=== PATIENT | female | born 1955 | race Caucasian/White ===

== ENCOUNTER 2022-03-19 11:37 | Day surgery (SDC) | payer MEDICARE, OTHER ==
[~2022-03-19] VITALS: Ht 177.8 cm; Wt 78.2 kg
[~2022-03-19 11:37] MED LIST: AMBIEN10 MG PO; DULOXETINE HCL40 MG PO; EPINEPHRIN0.3 MG/0.3 IM; IRON18 MG PO; MULTI VITAMIN1 EACH PO; VENTOLIN HFA18 GM INH
--- NOTE | 2022-03-19 14:28 | NUR ---
03/19/22 1428 Soraida Snow 1353 PT ARRIVED IN PACU SLEEPY. ABD SOFT. 1405 DR AT BEDSIDE. NEW ORDERS RECEIVED. 1410 STAT LABS DRAWN. 1425 RESTING. REU.
--- NOTE | 2022-03-19 15:00 | NUR ---
1500-PATIENT BACK TO ROOM 9 WHILE SHE WAITS TO HAVE A CT SCAN. PATIENT IS DROWSY LAYING IN BED WITH EYES CLOSED. DISCHARGE INSTRUCTIONS GIVEN WHILE IN PACU. 1605-PATIENT LEAVES DAY SURGERY TO HAVE CT. AFTER CT PATIENT WILL BE DISCHARGED.
--- NOTE | 2022-03-20 19:03 | OR ---
[facility] [address] [place], [place] [address] Signed DATE OF OPERATION: 03/19/2022 SURGEON: Matt Harmon MD PREOPERATIVE DIAGNOSES: 1. Anemia, unknown etiology. 2. Family history of colon cancer (sister). POSTOPERATIVE DIAGNOSES: 1. Large hiatal hernia. 2. Colon cancer, cecal tumor. PROCEDURES: 1. Esophagogastroduodenoscopy with biopsy. 2. Total colonoscopy to cecum with Endomark tattoo dye injection. 3. Biopsy of cecal tumor. ANESTHESIA: Intravenous sedation fentanyl 200 mcg and Versed 10 mg total. INDICATION: This 66-year-old white woman is a patient of Dr. Camejo of [place], [place]. She was referred to see me on January 16, as she was found to have anemia. Her hematocrit was 29 on December 05, 2021, She does have family history of colon cancer in a sister. She has undergone three colonoscopies in the past, last one in 2018, which was said to have showed "some polyps." She is symptom-free. She is admitted to undergo upper endoscopy and colonoscopy to better identify the source of anemia. She understands the risks of bleeding, infection, and perforation related to upper endoscopy and colonoscopy and wished to proceed. FINDINGS: Upper endoscopy showed only a hiatal hernia. There was no sign of associated lesion to account for anemia. On colonoscopy, the prep was good and a cecal tumor consistent with colon cancer was noted. It was firm and yet friable and multiple biopsies were obtained. Endomark tattoo dye was applied to guide resection in the near future. PROCEDURE IN DETAIL: The patient was brought to the endoscopy suite and placed in lateral decubitus position Electronically Signed By: MATT HARMON MD 03/20/22 1903 PATIENT NAME: SHUBHAM URENA OPERATIVE REPORT DATE OF : 57 REPORT #: [id number] PHYSICIAN: MATT HARMON MD PCP: JR CAMEJO DO REPORT IS CONFIDENTIAL AND NOT TO BE RELEASED WITHOUT AUTHORIZATION [facility] [address] [place], [place] [address] Signed after undergoing lidocaine hypopharyngeal anesthesia. A bite block was placed. She was given intravenous sedation to the point of slurred speech and nystagmus with full cardiopulmonary monitoring. An Olympus video upper endoscope was passed in the hypopharynx. The vocal cords appeared normal. Scope was advanced to the esophagus without problem throughout its length, it was normal. Scope was passed to the stomach, which was insufflated with air. Rugal folds were normal. Pylorus was normal. Scope was passed through into the normal duodenum. Biopsies taken of the duodenum and subsequently the antrum for both WILLIAM and pathologic testing. Retroflexed view showed a sizable hiatal hernia. There was no sign of collar ulcer. The scope was straightened, withdrawn and biopsies then taken of the distal esophagus, though it appeared otherwise normal. Remaining esophagus was normal. There was no evidence of lesion on upper endoscopy to account for anemia. Additional sedation was given and digital rectal examination performed which was normal. An Olympus video colonoscope was passed in the rectum and manipulated throughout the colon ultimately intubating the right colon and passage to the cecum undertaken. The lumen of the cecum was a bulky tumor, most consistent with malignancy. Four-quadrant injection of submucosal spot endoscopic tattoo dye was injected with sclerotherapy needle to demarcate the lesion for probable laparoscopic right colectomy. Following that, multiple biopsies were taken of the lesion. It felt firm and [place] consistent with malignancy. The scope was then withdrawn. Remaining colon was essentially normal. She was taken to the recovery room in good condition. 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 PLAN: She will need right colectomy probably laparoscopically. We will order a CEA, Chem 20 and CBC at this time, as well as organized for a CT scan of the abdomen and pelvis to allow for right colectomy in the near future. MD LEAH Escobedo/MODL /[id number] Electronically Signed By: MATT HARMON MD 03/20/22 1903 PATIENT NAME: SHUBHAM URENA OPERATIVE REPORT DATE OF : 57 REPORT #: [id number] PHYSICIAN: MATT HARMON MD PCP: JR CAMEJO DO REPORT IS CONFIDENTIAL AND NOT TO BE RELEASED WITHOUT AUTHORIZATION [facility] [address] [facility] [place] [address] Signed cc: Dr. Trey Pierre Copies: ~ Electronically Signed By: MATT HARMON MD 03/20/22 1903 PATIENT NAME: SHUBHAM URENA OPERATIVE REPORT DATE OF : 57 REPORT #: [id number] PHYSICIAN: MATT HARMON MD PCP: JR CAMEJO DO REPORT IS CONFIDENTIAL AND NOT TO BE RELEASED WITHOUT AUTHORIZATION
--- NOTE | 2022-03-26 08:56 | PATH ---
[facility] [address] [place], [place] [address] Signed THIS IS AN ADDENDUM REPORT SPECIMEN(S): A DUODENAL BIOPSY SPECIMEN(S): B ANTRUM/PYLORUS BIOPSY SPECIMEN(S): C LOWER ESOPHAGEAL BIOPSY SPECIMEN(S): D CECAL TUMOR BIOPSY SPECIMEN SOURCE: A. DUODENAL BIOPSY B. ANTRUM/PYLORUS BIOPSY C. LOWER ESOPHAGEAL BIOPSY D. CECAL TUMOR BIOPSY CLINICAL HISTORY: Anemia, family and personal history of polyps. Sister with colon ca. Post: Hiatal hernia. Neoplasm of cecum. Colonoscopy/EGD. FINAL PATHOLOGIC DIAGNOSIS: A. Duodenum, biopsy: - No significant histopathology. B. Antrum/pylorus, biopsy: - No significant histopathologic alterations. - A portion of pylorus/duodenum is also identified and is within normal limits. C. Lower esophagus, biopsy: - Portions of unremarkable squamous mucosa. D. Tumor, cecum, biopsy: - Moderately to poorly differentiated adenocarcinoma. COMMENT: Regarding specimen A, the sections from the duodenal biopsy show portions of duodenal mucosa with long finger-like villi. There is no villous atrophy, crypt hyperplasia or intraepithelial lymphocytosis, making a diagnosis of celiac disease unlikely. There is no evidence of peptic duodenitis, microorganisms, abnormal infiltrates or neoplasia. The sections through the gastric biopsies show fragments of histologically unremarkable antral mucosa. There is no evidence of acute or chronic inflammation. There is no evidence of H. pylori, intestinal metaplasia, abnormal infiltrates or neoplasia. PATIENT NAME: HAGSHUBHAM RICKETTS PATHOLOGY DATE OF : 57 REPORT #: [id number] PHYSICIAN: AUNG GUEVARA PCP: JR DAN DO REPORT IS CONFIDENTIAL AND NOT TO BE RELEASED WITHOUT AUTHORIZATION [facility] [address] [place], [place] [address] Signed Regarding specimen C, the esophageal biopsy shows normal-appearing squamous epithelium. There is no evidence of acute or chronic inflammation. Regarding specimen D, due to the tangential sectioning of the specimen, the definitive presence of invasion cannot be ascertained. Results of microsatellite instability testing will follow in an addendum report. A diagnostic alert was sent to the office of Dr. Wasserman on 03/22/2022. As part of [facility]' Quality Improvement Program, this case was reviewed by another member of our pathology staff. ALVARADO:ELOY:alisa:C1NR MICROSCOPIC EXAMINATION: Histologic sections of all submitted blocks are examined by light microscopy. These findings, together with the gross examination, support the pathologic diagnosis. GROSS DESCRIPTION: Four specimens are received in four containers labeled with "MH". A. The specimen, labeled "MH, 1," and designated on the requisition "duodenum biopsy," is received in formalin and consists of two fragments of pink-bell tissue (0.3-0.5 cm in greatest dimension). The specimen is submitted entirely in cassette (A1). B. The specimen, labeled "MH, 2," and designated on the requisition "antrum/pylorus biopsy," is received in formalin and consists of three fragments of pink-bell tissue (0.2-0.3 cm in greatest dimension). The specimen is submitted entirely in cassette (B1). C. The specimen, labeled "MH, 3," and designated on the requisition "lower esophagus biopsy," is received in formalin and consists of two fragments of white-bell tissue (0.3-0.4 cm in greatest dimension). The specimen is submitted entirely in cassette (C1). D. The specimen, labeled "MH, 4," and designated on the requisition "cecum tumor biopsy," is received in formalin and consists of eight fragments of pink-bell tissue (0.2-0.4 cm in greatest dimension). The specimen is submitted entirely in cassette (D1). AC (under the direct supervision of a pathologist) The Gross Description was prepared using a voice recognition system. The report was reviewed for accuracy; however, sound-alike word errors, addition and/or deletions may occur. If there is any question about this report, please contact Client Services. PATIENT NAME: SHUBHAM URENA PATHOLOGY DATE OF : 57 REPORT #: [id number] PHYSICIAN: AUNG GUEVARA PCP: JR DAN DO REPORT IS CONFIDENTIAL AND NOT TO BE RELEASED WITHOUT AUTHORIZATION [facility] [address] [place], [place] [address] Signed PERFORMING LABORATORY: The technical component was performed by [facility], [address] [place] [id number] (CLIA# [id number]). The professional interpretation was performed by [facility], [facility], [address] [place] [address] (CLIA#: [id number]). COMMENT: Tumor cells show no loss of nuclear expression of MMR proteins. This correlates with a low probability of microsatellite instability. However, if there is a high clinical suspicion for Burnett syndrome (hereditary non-polyposis colorectal carcinoma syndrome) in this patient, additional testing should be considered. Please contact [facility] if such testing is indicated. BETITOK:rosina ADDITIONAL NOTES: Immunohistochemical and/or in situ hybridization studies were performed on this case with the appropriate positive controls that react as expected. This test was developed and its performance characteristics determined by [facility]. It has not been cleared or approved by the U.S. Food and Drug Administration. The FDA has determined that such clearance or approval is not necessary. This test is used for clinical purposes. It should not be regarded as investigational or for research. [facility] is certified under the Clinical Laboratory Improvement Amendments of 1988 (CLIA) as qualified to perform high complexity clinical laboratory testing. The professional interpretation was performed by [facility], [facility], [address] [place] [place] [address] (CLIA#: [id number]). REASON FOR ADDENDUM: To add results of additional testing. ADDENDUM PATHOLOGIC DIAGNOSIS: Cecum, adenocarcinoma, microsatellite instability testing by IHC: - MLH1: Intact nuclear expression. - MSH2: Intact nuclear expression. - MSH6: Intact nuclear expression. - PMS2: Intact nuclear expression. INTERPRETATION: Normal pattern. PATIENT NAME: SHUBHAM URENA PATHOLOGY DATE OF : 57 REPORT #: [id number] PHYSICIAN: AUNG GUEVARA PCP: JR DAN DO REPORT IS CONFIDENTIAL AND NOT TO BE RELEASED WITHOUT AUTHORIZATION [address] [address] Signed ADDENDUM MICROSCOPIC EXAMINATION: A panel of four antibodies is selected which will detect 95% of microsatellite unstable carcinomas. Block: D1 Recut HE slide is prepared from the block. The presence of neoplastic glands and non-neoplastic internal control glands or stroma is confirmed. Internal control cells for MLH1, MSH2, PMS2 and MSH6 are positive. Neoplastic gland cells show the following: - MLH1: Positive. - MSH2: Positive. - MSH6: Positive. - PMS2: Positive. Technical testing [place] performed [place] [facility] [place]. TWK:caw Diagnostician: Jero Carrera MD Pathologist Electronically Signed 03/26/2022 Copies: ~ PATIENT NAME: SHUBHAM URENA PATHOLOGY DATE OF : 57 REPORT #: [id number] PHYSICIAN: AUNG PATHOLOGY PCP: JR DAN DO REPORT IS CONFIDENTIAL AND NOT TO BE RELEASED WITHOUT AUTHORIZATION
== END 2022-03-19 16:30 | disposition home or self-care (01) ==
LOC: OPS 11:37 → DS 11:37 → OPS 13:00 → DS 13:00 → OPS 16:30
PROVIDERS: ATTEND Surgery
PROC: 0DB38ZX Excision of Lower Esophagus, Via Natural or Artificial Opening Endoscopic, Diagnostic (ICD-10-PCS; 2022-03-19)
PROC: 0DBH8ZX Excision of Cecum, Via Natural or Artificial Opening Endoscopic, Diagnostic (ICD-10-PCS; 2022-03-19)
PROC: 0DB98ZX Excision of Duodenum, Via Natural or Artificial Opening Endoscopic, Diagnostic (ICD-10-PCS; principal; 2022-03-19 13:00)
PROC: 0DB68ZX Excision of Stomach, Via Natural or Artificial Opening Endoscopic, Diagnostic (ICD-10-PCS; 2022-03-19 13:00)
DX: C18.0 Malignant neoplasm of cecum (principal); D63.0 Anemia in neoplastic disease; Z80.0 Family history of malignant neoplasm of digestive organs; K44.9 Diaphragmatic hernia without obstruction or gangrene; Z91.040 Latex allergy status
CPT/HCPCS: 36415; 74177; 80053; 82378; 85025; 88305; 88341; 88342; 99153; G0500; J2250; J3010; J7121; Q9967

== ENCOUNTER 2022-03-27 16:16 | Inpatient (IN) | payer MEDICARE, OTHER ==
[~2022-03-27] VITALS: Ht 177.8 cm; Wt 86.4 kg
--- NOTE | 2022-04-06 20:20 | NUR ---
CALL RECEIVED FROM OR, OR TEAM IS "WRAPPING UP" AND pt WILL BE GOING TO PACU SOON. IN ROOM AND UPDATED.
--- NOTE | 2022-04-06 20:27 | NUR ---
04/06/222026 Jocelin Cerda 2019-PATIENT ARRIVED TO PACU ON 6L MASK NONAROUSABLE ORAL AIRWAY IN PLACE. 96% DRESSING TO ABDOMEN CDI. IVF INFUSING. SR. RN DOING JAW TILT TO OPEN AIRWAY. 2025-PATIENT STARTING TO MOVE HEAD NOT FOLLOWING COMMANDS EYES CLOSED. ORAL AIRWAY IN PLACE. MATT MARTINEZ ADMISTERING IV TYLENOL. 6L MASK 98%
--- NOTE | 2022-04-06 20:55 | NUR ---
CALL RECEIVED FROM OR, pt HEADING TO PACU SOON. IN ROOM AND UPDATED. QUESTIONS ANSWERED, pt ORIENTED TO ROOM AND CALL LIGHT IN REACH.
--- NOTE | 2022-04-06 21:30 | NUR ---
PT ARRIVED TO UNIT VIA HOSPITAL BED FROM OR. RECEIVED REPORT FROM WHITLEY FROM PACU. PT IS DROWSY BUT AWAKENS TO VOICE AND ABLE TO FOLLOW COMMANDS. HAMMER CATHETER PLACED IN OR IS DRAINING TO GRAVITY W/YELLOW OUTPUT AND SUFFICIENT QUANTITY. PILLOW PLACED ON ABDOMEN FOR BRACING W/MOVEMENT, PT EDUCATED ABOUT USE. MIDLINE INCISION DRESSING AND LAP SITE APPEARS C/D/I W/NO SIGNS OF INFECTION. SYSTOLIC BP ELEVATED AT 161 SYSTOLIC. PT ORIENTED X4. ADMISSION ASSESSMENT COMPLETE. CPOX IN PLACE PER PROTOCAL. SWALLOW ABILITY EVALUATED BY BRITANY RN W/SPOON FULL OF WATER, SWALLOWING IS SLOWED, WILL MONITOR AND REASSESS. BED ALARM ON, CALL LIGHT WITHIN REACH, NO FURTHER NEEDS AT THIS TIME.
--- NOTE | 2022-04-06 22:59 | NUR ---
2128 - pt admitted to room 108 from pacu via bed. pt drowsy, in room
--- NOTE | 2022-04-06 23:41 | NUR ---
IN PT ROOM FOR REPORTED 10/10 PAIN IN ABDOMEN, VERBALLY STATED BY PT. PRN TORADOL ADMINISTERED VIA IV (SEE EMAR). PT RESTING IN BED WITH EYES CLOSED, AWAKENS TO VOICE. AT BEDSIDE. BED ALARM ON, CALL LIGHT WITHIN REACH, HAMMER DRAINING TO GRAVITY.
--- NOTE | 2022-04-06 23:48 | NUR ---
pt opens eyes, more alert, on 2lnc, not chronic, post op cpox in place, sats 98% pulse 70, resp 14, shallows, answers appropriately, c/o 10/10 abd pain, was medicated with toradol 30mg. pale skin, midline abd incision in place, F/C not chronic patent, draining yellow urine, SCDS in place, at bedside
--- NOTE | 2022-04-07 00:34 | NUR ---
IN PT ROOM FOR VITALS, PT IS RESTING IN BED WITH EYES CLOSED BUT AWAKENS TO VOICE. RESPIRATIONS ARE EVEN AND UNLABORED, NO SIGNS OF DISTRESS. PT STATES PAIN HAS NOT DECREASED AFTER PRN TORADOL ADMIN. LIGHTS TURNED OFF AND TV TURNED OFF FOR THERAPEUTIC MILIEU, GONE HOME FOR THE NIGHT. CALL LIGHT WITHIN REACH, BED ALARM ON, NO FURTHER NEEDS AT THIS TIME.
--- NOTE | 2022-04-07 01:01 | NUR ---
AWAKES EASILY, C/O 10/10 ABD PAIN, MEDICATED WITH MORPHINE 2MG, PUPILS REACTIVE, ALERT, TOLERATED SIPD OF FLUIDS MUCH BETTER, NO DELAY. FACIAL SKIN W MORE COLOR. MIDLINE ABD INCISION AND 2 SMALL LAP DRESSINGS l ABD INTACT. ABD SOFT, LESLIE, NOT PASSING GAS. WILL RECHECK VITALS AND RESP AGAIN IN 1/2 HOUR AND NOTIFY MD IF STILL ELEVATED AND PT HAVING PROBLEMS, POST OP CPOX IN PLACE SATS 98%
--- NOTE | 2022-04-07 01:49 | NUR ---
MESSAGE LEFT IN DR VALDEZ CELL PHONE #
--- NOTE | 2022-04-07 01:56 | NUR ---
DR HARMON NOTIFIED VIA PHONE ABOUT PTS STATUS AND BP'S SINCE COMING TO FLOOR. NEW ORDER TO START HYDRALIZINE 10MG IV Q2H IF SBP HIGHER THAN 160.
--- NOTE | 2022-04-07 02:08 | NUR ---
HYDRALAZINE IV GIVEN PER ORDERS. PT AWAKE, FORGETFULL, TRYING TO GRAB UNSEEN THINGS FROM AIR. ALERT TO SELF ONLY, C/O ABD PAIN 5/10, BETTER THAN EARLIER. INSTRUCTED ON VISTAERIL BEING GIVENA ND REASONING, DENIES FLUSHING LIGHT OR VISUAL IMPAIRMENTS OR H/A, IVF INFUSING W/O PROBLEMS, F/C PATENT ICE TO ABD, HOB ELEVATED, CLEAR SPEECH, EYES OPEN, CPOX AT BEDSIDE SATS 100%, PULSE 68, RESP 15
--- NOTE | 2022-04-07 02:48 | NUR ---
IN ROOM TO ASSESS PT D/T REPORTS OF NAUSEA. PT IS NOW RESTING W/HOB ELEVATED AND EMESIS BAG IN LAP. EYES ARE CLOSED, RESPIRATIONS ARE EVEN & UNLABORED, NO SIGNS OF DISTRESS. CPOX READS 98% O2 ON 2L NC.
--- NOTE | 2022-04-07 03:52 | NUR ---
PT RESTING COMFORTABLY IN BED W/EYES CLOSED. RESPIRATIONS ARE EVEN AND UNLABORED, NO SIGNS OF DISTRESS. CPOX READS 98% O2 ON 2L NC, AND PULSE OF 77. CALL LIGHT WITHIN REACH, BED ALARM ON.
--- NOTE | 2022-04-07 05:20 | NUR ---
EYES CLOSED, O2 2L NC POST OP CPOX AT BEDSIDE SATS 100% P62 RESP 16.AWAKES EASILY, C/O 10/10 ABD PAIN, MEDICATED WITH TYLENOL IV. O2 DECREASED TO 1LNC, CPOX ON 97% P78 WHEN AWAKE, LUNGS CLEAR, ABD SOFT MIDLINE ABD DRESSING IN PLACE. LESLIE, KASSANDRA PASSING GAS OR BURPING. MORE ALERT, CALMER, F/C PATENT, SCDS IN PLACE. WNL, TOLERATED SIPS OF FLUIDS WELL. CALL LIGHT AT HANDSA REACH, IVF INFUSING W/O PROBLEMS
--- NOTE | 2022-04-07 05:29 | NUR ---
IN PT ROOM WITH BRITANY RN FOR VS AND I/O'S. PT IS RESTING COMFORTABLY ALERT AND ORIENTED X4. VSS. BP SYSTOLIC HAS IMPROVED TP 130'S SYSTOLIC. DRESSING REMAINS C/D/I WITH NO SIGNS OF INFECTION. PT EDUCATED ABOUT PLAN FOR THE DAY, STATES UNDERSTANDING AND AGREES. PT COLOR APPEARS PINK AND MUCH IMPROVED. CALL LIGHT WITHIN REACH, NO FURTHER NEEDS AT THIS TIME.
--- NOTE | 2022-04-07 06:24 | NUR ---
PT ARRIVED TO FLOOR AT 2127. ABDOMINAL DRESSING IS C/D/I WITH NO SIGNS OF INFECTION (2 LAPS, 1 MIDLINE INCISION). PT BP ELEVATED->MD AWARE, NEW ORDERS PLACED (SEE EMAR). BLOOD PRESSURES HAVE SINCE IMPROVED TO 130 SYSTOLIC. PRN MORPHINE, TYLENOL, AND TORADOL GIVEN X1 EACH. HAMMER IN PLACE AND DRAINING TO GRAVITY, QUANTITY SUFFICIENT. PT DROWSY, BUT ORIENTED X4. BOWEL TONES ARE ACTIVE. USES CALL LIGHT APPROPRIATELY. BED ALARM ON. AM LABS PENDING.
--- NOTE | 2022-04-07 07:55 | NUR ---
PT RESTING EYES CLOSED AT TIME OF SHIFT REPORT. UP TO THE CHAIR AT THIS TIME, WELL TOLERATED. PT RATES PAIN 10/10 BEFORE MOVEMENT. TORDOL ADMINISTERED. PT INSTRUCTED ON BRACING ABDOMEN AND ENCOURAGED TO COUGH AND DEEP BREATH. PT NOW USING I/S WITH INSTRUCTION. FRESH H20 TO CHAIR SIDE ALONG WITH CALL LIGHT AND INSTRUCTIONS TO CALL FOR ASSIST.
--- NOTE | 2022-04-07 10:26 | NUR ---
PT RESTING IN BED AFTER HAVING TAKEN A WALK. IS PRESENT. PT AGREES DR HARMON WAS IN TO SEE HER AND ANSWERED ALL QUESTIONS. HAMMER DC'D AND DIET ADVANCED TO FULL LIQUID. PT UP TO THE TOILET THEN RETURNS TO RESTING IN BED. CONTINUES TO BE SOMEWHAT PAINFUL, TYLENOL ADMINISTERED.
--- NOTE | 2022-04-07 11:11 | NUR ---
THIS MORNING PATIENT AND I WALKED 1 LAP AROUND MED SURG.
--- NOTE | 2022-04-07 12:00 | NUR ---
PT UP TO THE TOILET ABLE TO VOID WITHOUT ISSUE. AMBULATES A LAP IN THE VILLAGRAN RETURNS TO SIT IN THE RECLINER. USING I/S WITH ENCOURAGEMENT
--- NOTE | 2022-04-07 15:11 | NUR ---
ENTERED THE ROOM IN TIME TO SEE PT JUST GETTING BACK IN BED. SHE STATES SHE UNPLUUGED SCD'S FROM THE MACHINE AND IV THEN WENT INTO THE RESTROOM UNATTENDED BECAUSE SHE STATES SHE WAS ALREADY STARTING TO PEE AND COULDN'T WAIT. ENCOURAGED PT TO CALL FOR ASSIST AND REMINDED HER OF NO LIFTING, PUSHING, OR PULLING. ASSISTED PT TO PUT ON A PADDED UNDERGARMENT, BED ALARM SET. SHE DOES NOT C/O OF NAUSEA OR PAIN AT THIS TIME, WILL CONTINUE PAIN MEDS AT REGULAR INTERVALS TO ENSURE COMFORT.
--- NOTE | 2022-04-07 16:08 | NUR ---
PT PRESENT IN THE ROOM, SHE CALLS APPROPRIATELY TO GET UP TO TOILET. AGREES HER ABDOMEN IS STARTING TO HURT, RATES PAIN 8/10 TORDOL GIVEN. AGREES TO REST FOR A SHORT TIME THEN GET TO AMBULATE THE HALLS AGAIN. PT ENCOURAGED TO USE THE I/S
--- NOTE | 2022-04-07 17:30 | NUR ---
PT UP TO TOILET, USES CALL LIGHT APPROPRIATELY. SHE MAKES 2 LAPS IN THE VILLAGRAN THEN RETURNS TO HER ROOM. PREFERS BED INSTEAD OF CHAIR. EVENING MEAL SERVED PT TOLERATING BITES, DENIES WANT OF OTHER ITEMS. SCD'S ARE IN PLACE, CALL LIGHT IN HAND
--- NOTE | 2022-04-07 19:10 | NUR ---
RECEIVED REPORT FROM EMILIANO BAHENA. PT IS RESTING IN BED W/DAUGHTER AND AT BEDSIDE. EMILIANO BAHENA ASSISTING PT WITH AMBULATION TO BATHROOM.
--- NOTE | 2022-04-07 20:30 | NUR ---
IN ROOM FOR PT ASSESSMENT AND WAREHOUSE INVENTORY CLERK. PT REPORTS PAIN 9/10. PRN TYLENOL AND TORADOL NOT AVAILABLE, MORPHINE GIVEN (SEE EMAR). DRESSINGS APPEARS C/D/I WITH SCANT SEROSANGUINOUS DRAINAGE, NO SIGNS OF INFECTION. BOWEL TONES ARE ACTIVE X4 AND ABDOMEN IS MINIMALLY DISTENDED COMPARED TO NORMAL PER PT, WELL TENDER. PT O2 98% AND PT OCCASIONALLY PAIN W/DEEP BREATHING. PT EDUCATED ON IS USE AND DEMONSTRATED PROPER USE X2. SCD'S IN PLACE. PT REPORTS NO DIZZINESS, N/T, CHEST PAIN. PT ALERT AND ORIENTED X4, FOLLOWS COMMANDS. PT WEAK BUT ABLE TO ADJUST SELF IN BED. PILLOW PROVIDED FOR STOMACH BRACING FOR INFREQUENT OCCASIONAL COUGH, LUNGS ARE CLEAR. BED ALARM ON, CALL LIGHT WITHIN REACH, NO FURTHER NEEDS AT THIS TIME.
--- NOTE | 2022-04-07 20:31 | NUR ---
VITALS SIGNS COMPLETE, FRESH ICE WATER GIVEN, GARBAGE REMOVED, PRIMARY RN IN ROOM, PT COMPLAINED OF 9/10 PAIN. THIS RN AND PRIMARY LETTY, REPOSITIONED PT UP INTO BED.
--- NOTE | 2022-04-07 21:00 | NUR ---
IN PT ROOM, PT STATES SHE IS NAUSEATED. PRN ZOFRAN GIVEN (SEE EMAR). IN MIDDLE OF ADMINISTRATION PT HAD SMALL AMOUNT OF EMESIS, HOB ELEVATED, COLD RAG PROVIDED, ALKA VINNY PROVIDED. CALL LIGHT WITHIN REACH, BED ALARM ON, WILL CONTINUE TO MONITOR.
--- NOTE | 2022-04-07 21:15 | NUR ---
IN ROOM TO ASSESS PT AFTER NAUSEATED, PT STATES NAUSEA HAS IMPROVED. LIGHTS REDUCED FOR THERAPEUTIC MILIEU. CALL LIGHT WITHIN REACH, BED ALARM ON, NO FURTHER NEEDS AT THIS TIME.
--- NOTE | 2022-04-07 22:35 | NUR ---
CALL LIGHT ANSWERED, pt ASKING FOR OXYGEN D/T INABILITY TO TAKE DEEP BREATHS. IN ROOM TO ASSESS, pt AWAKE AND RESTING IN BED, NEARLY FLAT. SPO2 100 ON RA, NO DISTRESS NOTED. pt RECENTLY HAD COUGHING SPELL/EMESIS AND WAS MEDICATED BY PRIMARY RN. HOB RAISED AND pt EDUCATED ON ABD SPLINTING WITH PILLOW. NO ADDITIONAL NEEDS OR CONCENRS VERBALIZED, WILL MONITOR. CALL LIGHT IN REACH.
--- NOTE | 2022-04-07 23:00 | NUR ---
REASSESSED pt, pt RESTING IN BED AND CALM IN APPEARANCE. NO DISTRESS NOTED. NO NEEDS OR CONCERNS, CALL LIGHT IN REACH. pt REMAINS ON RA.
--- NOTE | 2022-04-08 00:10 | NUR ---
IN ROOM FOR PRN PAIN ENERGY ADMINISTRATOR FOR 8/10 ABDOMEN PAIN. PT STATES NO NAUSEA AT THIS TIME. PRN TORADOL AND TYLENOL GIVEN (SEE EMAR). ICE PACK PROVIDED. CALL LIGHT WITHIN REACH, BED ALARM ON, NO FURTHER NEEDS AT THIS TIME.
--- NOTE | 2022-04-08 01:15 | NUR ---
PT ASSISTED TO THE TOILET, BACK TO BED
--- NOTE | 2022-04-08 03:18 | NUR ---
IN ROOM TO ASSIST W/PT AMBULATION TO BATHROOM. THIS RN AND TROY BEAULIEU IN ROOM. PT GAIT TO BATHROOM IS STEADY. PT NOW BACK IN BED. PT REPORTS 7/10 PAIN AFTER AMBULATION, ICE PACK PROVIDED. PT IS NOW RESTING IN BED WITH EYES CLOSED. NO ACUTE CHANGES FROM PREVIOUS ASSESSMENT. BOWEL TONES ACTIVE X4, DRESSING IS C/D/I W/SCANT DRAINAGE FROM OLD SHADOWING. NO NEW SHADOWING. ABDOMEN IS TENDER AND MINIMALLY DISTENDED PER PT. SCD'S IN PLACE. CALL LIGHT IN REACH, BED ALARM ON.
--- NOTE | 2022-04-08 05:19 | NUR ---
ASSISTED PT W/AMBULATION TO BATHROOM VIA STANDBY ASSIST. PT SLOW BUT STEADY IN GAIT, VOIDED 580. PT NOW BACK IN BED WITH FRESH ICE PACK ON ABDOMEN. SCD'S IN PLACE. PT STATES PAIN IN ABDOMEN 01/17. PT STATES SHE IS HESITANT TO TAKE MORPHINE D/T N/V. LET HER KNOW PRN TYLENOL AND IBUPROFEN NOT AVAILABLE AT THIS TIME. WILL LET PT REST AND REASSESS IF SHE WOULD LIKE THE MORPHINE. CALL LIGHT WITHIN REACH, BED ALARM ON, COLD WASH CLOTH PROVIDED.
--- NOTE | 2022-04-08 06:49 | NUR ---
IN PT ROOM FOR ABX ADMINISTRATION. ASSISTED PT W/AMBULATION VIA STANDBY ASSIST TO RESTROOM. PT AMBULATED WELL, SLOW BUT STEADY GAIT. PT NOW RESTING IN BED WITH ICE PACK AND COLD WASH CLOTH ON FOREHEAD. PT STATES REQUESTS PRN NAUSEA MEDICATION AND PRN TYLENOL. 300 OUTPUT VOIDED. PT BOOSTED IN BED. BED ALARM ON, CALL LIGHT WITHIN REACH, NO FURTHER NEEDS AT THIS TIME.
--- NOTE | 2022-04-08 07:28 | NUR ---
PT SLEEPING SOUNDLY AT TIME OF SHIFT REPORT, LEFT UNDISTURBED. BED ALARM IS CERTIFIED NURSING ATTENDANT LIGHT IN REACH
--- NOTE | 2022-04-08 07:44 | NUR ---
PT ASLEEP IN BED. WHITE BOARD UPDATED. CALL LIGHT IN REACH. WILL CHECK BACK LATER. NO FURTHER NEEDS AT THIS TIME.
--- NOTE | 2022-04-08 09:07 | NUR ---
PT UP IN THE CHAIR EATS BETTER THAN YESTERDAY. COMPLETES YOGURT AND JUICE, SEVERAL BITES OF CREAM OF WHEAT, AND SOME OTHER FLUIDS. NO C/O NAUSEA. PAIN WAS RATED 9/10 EARLIER THIS SHIFT, AFTER TORDOL SHE RATES PAIN 8/10. PAIN NUMBERS HAVE BEEN CONSISTANTLY HIGH WITH THIS PT, THOUGH AFFECT DOES NOT REFLECT EXTREME PAIN. ASKED IF 7/10 WAS ACCEPTABLE TO HER SHE STATES "I'D LIKE IT TO BE A LITTLE LOWER" WILL CONTINUE TO ALTERNATE TORDOL AND TYLENOL AND CHECK WITH MD REGARDING SOMETHIGN ELSE FOR BREAKTHROUGH. MORPHINE REPORTED BY NOC RN WAS NOT EFFECTIVE AND CAUSED NAUSEA.
--- NOTE | 2022-04-08 10:26 | NUR ---
PT WALKED TWO LONG LAPS AROUND NURSES STATION AND DID OWN ORAL CARE AND TOILETING.
--- NOTE | 2022-04-08 10:56 | NUR ---
PT SITTING IN THE CHAIR WATCHING TV, CALM AND CONVERSATIONAL. ASSISTED TO MAKE A LIST OF ITEMS TO ASK DR ABOUT. SHE WANTS TO SHOWER AND TO KNOW WHEN SHE CAN EXPECT BOWELS TO MOVE. ASKED IF SHE'D LIKE TO REQUEST SOMETHING MORE FOR PAIN SHE STATES I'D LIKE TO BE ABLE TO SLEEP BETTER. NOTES MADE ON WHITE BOARD TO ASSIST PT TO REMEBER.
--- NOTE | 2022-04-08 13:06 | NUR ---
PT SITTING UP IN BED FAMILY ARE PRESENT SHE EATS A FEW FOOD ITEMS. DR HARMON UPDATED THEN HE GOES IN TO VISIT.
--- NOTE | 2022-04-08 13:50 | NUR ---
PT WALKED THREE LONG LAPS AROUND NURSES STATION WITH FAMILY.
--- NOTE | 2022-04-08 14:33 | NUR ---
PT RESTING IN BED FAMILY X2 ARE PRESENT. NO C/O NAUSEA THIS SHIFT, PAIN IS WELL CONTROLLED PER PT REPORT. DENIES NEEDS AT THIS TIME. MENU PROVIDED TO ENCOURAGE PO INTAKE
--- NOTE | 2022-04-08 15:25 | NUR ---
REMAINS IN THE ROOM. PT UP AND TO THE SHOWER STAFF SBA. AGREES SHE FEELS MUCH BETTER. PERSONAL CARE ITEMS PROVIDED PT DOING SELF CARES.
--- NOTE | 2022-04-08 19:25 | NUR ---
REPORT RECEIVED FROM SHRUTI CUMMINGS. pt UP TO RESTROOM SBA. IN ROOM.
--- NOTE | 2022-04-08 20:44 | NUR ---
CALL LIGHT ANSWERED. pt REQUESTING SLEEPING MEDICATION. ASSESSMENT COMPLETE. BOWEL TONES HYPOACTIVE X 4. ABD SOFT, NON-TENDER WITH PALPATION. pt RATES PAIN 6/10 IN ABDOMEN. PRN TYLENOL ADMINISTERED. IS USE DEMONSTRATED X 2. pt UP TO RESTROOM SBA FOR VOID AND BACK TO BED. SCDS ON. IV SITE FLUSHED WNL, IVF INFUSING ORDERED. CALL LIGHT IN REACH.
--- NOTE | 2022-04-08 22:11 | NUR ---
pt SLEEPING, BREATHING UNLABORED. IV ANTIBIOTIC INFUSING WNL ORDERED. CALL LIGHT IN REACH.
--- NOTE | 2022-04-08 22:27 | NUR ---
IV ANCEF COMPLETE. IV FLAGYL INFUSING WNL ORDERED. BED ALARM SET FOR PATIENT SAFETY pt ATTEMPTING TO GET OUT OF BED WITHOUT CALLING, SCDS STILL CONNECTED PER TEMPERING KILN TENDER. CALL LIGHT IN REACH. NO REQUESTS AT THIS TIME. SCDS BACK ON.
--- NOTE | 2022-04-09 00:07 | NUR ---
CALL LIGHT ANSWERED. SBA TO RESTROOM WITH BRITTNEE ANDRES. IVF INFUSING WNL.
--- NOTE | 2022-04-09 00:16 | NUR ---
PATIENT CALLED TO USE THE BATHROOM. SBA. PATIENT IS BACK IN BED NOW. MADE ICE PACK FOR ABDOMEN. SCD'S BACK ON. BED ALARM ON FOR SAFETY.
--- NOTE | 2022-04-09 01:44 | NUR ---
CHECKED ON pt. pt RESTING IN BED WITH EYES CLOSED. NO DISTRESS NOTED. BED ALARM ON.
--- NOTE | 2022-04-09 02:14 | NUR ---
CALL LIGHT ANSWERED. SBA TO THE BATHROOM AND BACK TO BED. ICE WATER REFRESHED. NO OTHER CARE NEEDS AT THIS TIME. BED ALARM ON FOR SAFETY.
--- NOTE | 2022-04-09 04:30 | NUR ---
CALL LIGHT ANSWERED. SBA TO RESTROOM FOR VOID AND BACK TO BED. ASSESSMENT COMPLETE. pt RATES PAIN 7/10 WITH MOVEMENT. PRN TYLENOL AND TORADOL ADMINISTERED. BOWEL TONES ACTIVE. ABD SOFT, NON-TENDER WITH PALPATION. NO NEW DRAINAGE ON DRESSINGS. SCDS ON. ICE PACK AND DIET SPRITE PROVIDED. CALL LIGHT IN REACH.
--- NOTE | 2022-04-09 06:13 | NUR ---
CALL LIGHT ANSWERED. SBA TO RESTROOM FOR VOID. pt BACK IN BED. SCDS ON. VSS. NEW ICE PACK PROVIDED. IV ANTIBIOTICS INFUSING ORDERED. CALL LIGHT IN REACH.
--- NOTE | 2022-04-09 07:44 | NUR ---
REPORT FROM SHRUTI ALMANZA.
--- NOTE | 2022-04-09 08:00 | NUR ---
Spoke with pt and she states she [place] spouse. They live in a house with 3 steps. She has not had issues getting in or out of her house in the past. She states she was able to walk 4 laps in the [place] yesterday. They have a hired man, so her spouse will be able to stay and assist her as needed in the home.She would like a shower chair/bench and I gave her the information sheet for [employer] lending closet. She denies financial needs and plans on dc to home when cleared medically.
--- NOTE | 2022-04-09 08:03 | NUR ---
MORNING ASSESSMENT IS COMPLETE. PATIENT IS UP TO CHAIR FOR BREAKFAST. BOWEL SOUNDS ARE ACTIVE AND PATIENT ENDORSES PASSING GAS, SCANT STOOL. X3 ABD INCISIONS ARE INTACT, COVERED WITH FOAM DRESSING, SCANT OLD DRAINAGE. IVF TO RIGHT HAND, IV IS INTACT. PATIENT RATES ABD PAIN 8/10, DENIES NAUSEA.
--- NOTE | 2022-04-09 08:20 | NUR ---
PATIENT GIVEN 2MG IV MORPHINE, PER REQUEST, HER PAIN IS 8/10 AND SHE CANNOT HAVE TYLENOL UNTIL 1000 AND TORADOL AT 1200.
--- NOTE | 2022-04-09 09:37 | NUR ---
PATIENT REPORTS 7/10 ABD PAIN AFTER 2MG MORPHINE. PLAN TO GIVEN PO TYLENOL AT 1000. PATIENT REPORTS FEELING BLOATED, ENCOURAGED PATIENT TO AMBULATE IN HALLWAY TODAY.
--- NOTE | 2022-04-09 09:47 | NUR ---
PATIENT IS UP AMBLATING IN HALLWAY WITH STAFF.
--- NOTE | 2022-04-09 09:55 | NUR ---
pt walked two full laps around unit. stand by assit. pt back in room up in chair call light within reach.
--- NOTE | 2022-04-09 10:26 | NUR ---
PATIENT IS SITTING UP IN CHAIR, SPOUSE IN ROOM. PATIENT DENIES NEEDS AT THIS TIME.
--- NOTE | 2022-04-09 11:18 | NUR ---
PATIENT GIVEN 1G PO TYLENOL FOR 7/10 ABD PAIN. IS IN ROOM WITH PATIENT.
--- NOTE | 2022-04-09 13:16 | NUR ---
IV ANCEF PUSH GIVEN, IV FLAGYL INFUSING FOR 30 MINUTES.
--- NOTE | 2022-04-09 13:33 | NUR ---
PATIENT UP TO AMBULATE SEVERAL LAPS IN HALLWAY.
--- NOTE | 2022-04-09 16:56 | NUR ---
PATIENT GIVEN IV TORADOL FOR 6/10 ABDOMEN PAIN. PATIENT DENIES OTHER NEEDS.
--- NOTE | 2022-04-09 18:13 | NUR ---
PATIENT IS SALINE LOCKED, UP AD BENITO TO BATHROOM.
--- NOTE | 2022-04-09 18:20 | NUR ---
PATIENT DID ORAL CARE AND PM CARE INDEPENDENTLY. PATIENT NOW IN BED WATCHING TV. VITALS AND I&O'S CHARTED. BLOOD PRESSURE HIGH, RN NOTIFIED. CALL LIGHT IN REACH. NO FURTHER NEEDS AT THIS TIME.
--- NOTE | 2022-04-09 18:34 | NUR ---
PATIENT GIVEN ONE 7.5/325 PERCOCET FOR 6/10 ABD PAIN.
--- NOTE | 2022-04-09 19:00 | NUR ---
REPORT RECEIVED FROM SHRUTI STEPHEN. pt AWAKE SITTING UP IN BED. RATES PAIN 6-12/17. STATES "MY BACK HURTS TOO". pt SMILING. IV SL. CALL LIGHT IN REACH. pt DENIES ADDITIONAL PAIN MEDICATIONS.
--- NOTE | 2022-04-09 20:58 | NUR ---
pt AWAKE RESTING IN BED. DENIES PAIN AT THIS TIME. ASSESSMENT COMPLETE. ABD SOFT. BOWEL TONES HYPOACTIVE. SBA TO RESTROOM FOR VOID. pt PROVIDED WITH TOOTHBRUSH, HAND TOWELS. pt VERBALIZES WILL CALL WHEN BACK TO BED.
--- NOTE | 2022-04-09 21:57 | NUR ---
PATIENT CALLED. PATIENT STATED "WENT TO THE BATHROOM BUT THERE'S NOT MUCH". PATIENT IS BACK IN BED. SCD'S BACK ON. PLUGGED IN THE IV TO CHARGE THE BATTERY. PATIENT DENIES ANY CARE NEEDS AT THIS TIME.
--- NOTE | 2022-04-09 22:48 | NUR ---
PT RESTING IN BED, VANCO MIXED BY SCREEN OPERATOR NOW INFUSING. PT ALERT AND ORIENTED, PLEASANT, NO NEW CONCERNS.
--- NOTE | 2022-04-09 23:00 | NUR ---
pt RESTING IN BED. BREATHING UNLABORED. NO DISTRESS NOTED. CALL LIGHT IN REACH.
--- NOTE | 2022-04-09 23:09 | NUR ---
CALL LIGHT ANSWERED. PT UP TO BR WITH MINIMAL SBA TO VOID. BACK TO BED, ALVARO WELL. SCD'S IN PLACE. TEMP ADJUSTED IN ROOM PER REQUEST. NO FURTHER NEEDS.
--- NOTE | 2022-04-10 00:47 | NUR ---
CHECKED ON pt. pt AWAKE RESTING IN BED. SBA TO RESTROOM FOR VOID AND BACK TO BED. SCDS ON. pt RATES PAIN 6/10 IN ABDOMEN. PRN PAIN MEDICATION ADMINISTERED REQUESTED WITH CRACKERS. NO ADDITIONAL REQUESTS. ICE WATER REFILLED AND CALL LIGHT IN REACH.
--- NOTE | 2022-04-10 04:15 | NUR ---
PATIENT CALLED. SBA TO THE BATHROOM AND BACK TO BED. ICE WATER REFILLED. DENIES ANY FURTHER CARE NEEDS AT THIS TIME.
--- NOTE | 2022-04-10 06:34 | NUR ---
pt AWAKENS TO VOICE. BP 171/92. pt RATES PAIN 5/10 "IT'S OKAY". PRN PAIN MEDICATION ADMINISTERED FOR ABDOMINAL PAIN. ABD SOFT, NON-TENDER WITH PALPATION. BOWEL TONES HYPOACTIVE. pt REQUESTING BREAK FROM SCDS AT THIS TIME. DENIES TOILETING NEEDS. ICE WATER PROVIDED AND ICE PACK FOR ABDOMEN. CALL LIGHT IN REACH.
--- NOTE | 2022-04-10 07:17 | NUR ---
REPORT RECIEVED FROM SHRUTI ALMANZA. PT GIVEN PAIN MEDS AND IS NOW BACK IN BED ASLEEP.
--- NOTE | 2022-04-10 08:51 | NUR ---
PT SITTING UP IN CHAIR EATING BREAKFAST. PT STATES SHE IS EATING FINE, JUST HAS GAS AFTER. WILL AMBULATE IN [place] WHEN DONE. RATES PAIN 5\10 WITH ACCEPTABLE AT 3-4. WILL DISCUSS MORTIN WITH TORADOL FELL OFF. HYPO BT NOTED. PT ONLY QUESTION WAS REGARDING PEPCID AND IF ANY WHERE BETTER FOR LIVER THAN OTHERS. TOLD HER I WOULD LOOK INTO IT.
[2022-04-10] MEDS ORDERED: ACETAMINOPHEN500 MG PO (09:09)
[2022-04-10] MEDS ORDERED: OXYCODON-ACETA1 EAC2 PO (09:09)
[2022-04-10] MEDS ORDERED: PROTONIX40 MG PO (09:10)
--- NOTE | 2022-04-10 10:00 | NUR ---
Spoke with Alicia. She denies needs. She is packing her room and awaiting her spouse to pick her up. We did discuss a bath chair and she has the form for [employer] lending closet. States she is unsure if she will need as she has been walking without issue laps around the nurses station. plans on dc to home when her spouse arrives.
[2022-04-10] MEDS ORDERED: ESTRACE42.5 GM VAGINAL (10:12)
[2022-04-10] MEDS ORDERED: VITAMIN D325 MCG PO (10:12)
[2022-04-10] MEDS ORDERED: VITAMIN C500 M4 PO (10:12)
--- NOTE | 2022-04-10 10:13 | NUR ---
MED REC COMPLETE
--- NOTE | 2022-04-12 13:21 | DS ---
[facility] [address], [place] [address] Signed ADMISSION DATE: 04/06/2022 DISCHARGE DATE: 04/10/2022 REASON FOR ADMISSION: Cecal adenocarcinoma for resection. HISTORY OF PRESENT ILLNESS: This 66-year-old white woman is a patient of Dr. Rai Camejo of [place], [place]. The patient was referred to me for colonoscopy as she had anemia and underwent colonoscopy on March 19, 2022, where she was found to have a cecal neoplasm, confirmed as adenocarcinoma. A CT scan of the abdomen was performed on the day of her colonoscopy, which showed no evidence of metastatic disease to the liver, but did show mesenteric adenopathy. The lesion was considered 7.[address] scan. Her CEA preoperatively is normal. It is notable that her sister has had stage IV colon cancer. She has had anemia for about a year. She thinks. She is admitted at this time to undergo right colectomy, possibly laparoscopically, possibly open, depending on clinical findings. PERTINENT PHYSICAL EXAMINATION: GENERAL: Shows a pleasant white woman, who looks to be in no acute distress. NECK: Trachea is midline. CHEST: Clear. HEART: Regular. She has no wheeze or rhonchi. ABDOMEN: Soft. There is no palpable mass. EXTREMITIES: Show no clubbing, cyanosis, or edema. HOSPITAL COURSE: On April 06, 2022, she underwent laparoscopic-assisted right hemicolectomy, converted to a larger open incision was required as the extent of her adenopathy was significant enough that adequate mesenteric resection was more reliably performed with an open approach. A [id number] functional end-to-end ileotransverse colostomy was performed. There was definitely suspicious mesenteric lymphadenopathy. She had no evidence of carcinomatosis. She did have some direct extension to omentum that was present. Atretic ovarian tissue was noted and not resected. The liver was palpably and visibly normal. Her postoperative course was rather unremarkable. She was begun on clear liquids the night of operation, advanced to full and ultimately to a regular diet. By day of discharge, she is ambulating well, tolerating a regular diet, has incisional pain well controlled with oral analgesics and has had good bowel function. DISCHARGE INSTRUCTIONS: Electronically Signed By: MATT HARMON MD 04/12/22 1321 PATIENT NAME: SHUBHAM URENA DISCHARGE SUMMARY DATE OF : 57 REPORT #: [id number] PHYSICIAN: MATT HARMON MD PCP: RAI CAMEJO DO REPORT IS CONFIDENTIAL AND NOT TO BE RELEASED WITHOUT AUTHORIZATION [address] [address] Signed Followup plan is to see me back in the office in three weeks or so. Referral will be made to Dr. Murcia as she very likely has a stage III colon cancer and she will likely need adjuvant chemotherapy. Her discharge medications will include: 1. Percocet 7.5/325 one to two p.o. q.6 hours as needed for pain, #10. 2. Tylenol 1000 mg p.o. q.6 hours as needed for pain, #60. 3. Pantoprazole 40 mg p.o. daily, #30. She will continue her usual medicines, which include: 1. Albuterol nebulizer 2-4 inhalations every 4 hours as needed. 2. Duloxetine 40 mg p.o. daily. 3. Iron tablet 18 mg three times a day. 4. Multivitamin one p.o. daily. 5. Zolpidem (Ambien) 10 mg p.o. at bedtime. 6. Estradiol cream 0.1% applied for vaginal dryness. 7. Vitamin C 500 mg p.o. daily. 8. Vitamin D3 25 mcg p.o. daily. DISCHARGE DIAGNOSES: 1. 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 2. 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 3. Insomnia. 4. Reactive airways. Other instructions, she is to avoid lifting more than 20 pounds for the next three weeks. She will keep Steri-Strips in place. She is to shower on a daily basis. MD LEAH Escobedo/MODL /[id number] cc: MD Dr. Ria Arango [place] Electronically Signed By: MATT HARMON MD 04/12/22 1321 PATIENT NAME: SHUBHAM URENA DISCHARGE SUMMARY DATE OF : 57 REPORT #: [id number] PHYSICIAN: MATT HARMON MD PCP: RAI CAMEJO DO REPORT IS CONFIDENTIAL AND NOT TO BE RELEASED WITHOUT AUTHORIZATION [address] [address] Signed [place]: EVELYN MURCIA MD ~ Electronically Signed By: MATT HARMON MD 04/12/22 1321 PATIENT NAME: SHUBHAM URENA DISCHARGE SUMMARY DATE OF : 57 REPORT #: [id number] PHYSICIAN: MATT HARMON MD PCP: RAI CAMEJO DO REPORT IS CONFIDENTIAL AND NOT TO BE RELEASED WITHOUT AUTHORIZATION
--- NOTE | 2022-04-17 09:35 | OR ---
[facility] [address], [place] [address] Signed DATE OF OPERATION: 04/06/2022 SURGEON: Matt Harmon MD PREOPERATIVE DIAGNOSES: 1. Cecal tumor (adenocarcinoma). 2. CT scan showing regional adenopathy. No evidence of distant metastasis. POSTOPERATIVE DIAGNOSES: 1. Bulky cecal tumor with multiple mesenteric lymph node enlargement. 2. Normal-appearing liver and ovaries and small bowel. PROCEDURES: Laparoscopic assisted right hemicolectomy, prolonged, complicated, difficult with [id number] ileocolostomy and partial omentectomy. ANESTHESIA: General endotracheal; Matt Roth CLIENT CUSTOMER MANAGER and bilateral tap blocks postoperatively. INDICATION: This 66-year-old white woman who is a patient of Dr. Rai Camejo in [place], [place]. The patient was for referred to me for colonoscopy, as she was anemic. She underwent colonoscopy on March 19, 2022, where she was found to have a cecal neoplasm. No doubt accounting for her anemia. Adenocarcinoma was identified. The lesion was 7.[address] scan that was performed postoperatively. Mesenteric adenopathy was noted or at least suspected on the CT scan. No evidence of distant metastatic disease was noted. Preoperative CEA level was normal. It is notable that her sister did have stage IV colon cancer, requiring chemotherapy and resection. She is admitted at this time to undergo a laparoscopic-assisted right colectomy, possible open procedure and other indicated procedures. She understands the risks of bleeding, infection, anastomotic failure, ureteral injury, need for additional treatment including chemotherapy, depending on operative findings and so on. Understand that she wished to proceed. FINDINGS: Laparoscopic evaluation showed no evidence of carcinomatosis or sign of hepatic metastases. The tumor was bulky and was mobilized well including the right mesocolon Electronically Signed By: MATT HARMON MD 04/17/22 0935 PATIENT NAME: SHUBHAM URENA OPERATIVE REPORT DATE OF : 57 REPORT #: [id number] PHYSICIAN: MATT HARMON MD PCP: RAI CAMEJO DO REPORT IS CONFIDENTIAL AND NOT TO BE RELEASED WITHOUT AUTHORIZATION [facility] [address], [place] [address] Signed and transverse mesocolon, but the bulk of the tumor combined with the significant distal mesenteric adenopathy precluded confident progression of a laparoscopic approach for mesenteric resection and on that basis, additional open surgery was undertaken. Extensive mesenteric excision was undertaken including the right transverse mesocolon and the right mesocolon up to an as far as possible as there were suspicious nodes throughout. The kidney, ureter, and other abdominal structures were preserved. Ovarian tissue was minimal in amount and showed no evidence of metastatic disease. Palpation of the liver showed no evidence of neoplasm either. A hyux-xz-keju ileotransverse colostomy was performed, which appeared viable, well patent and watertight. The mesenteric defect was approximated as well to avoid transmesenteric herniation in the future. DESCRIPTION OF PROCEDURE: The patient was brought to the operating room, given a general endotracheal anesthetic. She received a complete bowel prep including oral antibiotics and preoperative antibiotic Ancef and Flagyl. A Adkins catheter was placed. The abdomen was prepared with a chlorhexidine solution and draped sterilely. Infraumbilical incision was made and using an open Asad cannula technique, pneumoperitoneum was achieved to a level of 14 mmHg of carbon dioxide gas. Intra-abdominal inspection showed no sign of ascites or carcinomatosis. The liver appeared normal. Endoscopic tattoo marking that clearly delineated the cecal neoplasm quite easily. A 5 mm left upper quadrant trocar was placed as well as a 5 mm suprapubic trocar and a 5 mm left lower quadrant trocar. The cecum did have a bulky tumor to be sure. She had a fair amount of intraabdominal mesenteric fat. The ilium was grasped and elevated medially and using electrocautery with hook dissection, the cecum was mobilized from the retroperitoneum. Blunt and minimal amounts of electrocautery were used, identifying well Gerota fascia. Notably, the patient was in a steep Trendelenburg [id number] position at that point. Further dissection was undertaken medially and cephalad as well. The bulky colon was mobilized from the retroperitoneum well without evidence of direct penetration by the tumor into the retroperitoneal muscle or anything of that sort. Once complete mobilization to the midline was undertaken, the table was placed in a reverse Trendelenburg position. The right colon was elevated laterally and some omentum was from the hepatic flexure. Using blunt electrocautery dissection, the hepatic flexure was mobilized, identifying very easily the proximal and mid portions of the duodenum. With meticulous care, blunt dissection, the duodenum from surrounding transverse mesocolon. Upon close inspection, it appeared that there was a tattoo-laden lymph node in the mid transverse colon, which incidentally was rather enlarged. This represented a testimony Electronically Signed By: MATT HARMON MD 04/17/22 0935 PATIENT NAME: SHUBHAM URENA OPERATIVE REPORT DATE OF : 57 REPORT #: [id number] PHYSICIAN: MATT HARMON MD PCP: RAI CAMEJO DO REPORT IS CONFIDENTIAL AND NOT TO BE RELEASED WITHOUT AUTHORIZATION [facility] [address] [place] [address] [address] [place], [place] [address] Signed to the lymphatic distribution of the tumor, which was located in the cecum. Rotation of the small bowel to the left abdomen was undertaken, but there were omental adhesions directly to the tumor itself. These were initially interpreted as the mesentery itself, but close inspection showed mesenteric attachment to the tumor. So as to keep with oncologic principles of avoiding peeling away surrounding structures from the offending that lesion, sequential application of Endo-PHAM 60 mm stapling device to separate portion of the omentum from the cecum was undertaken. This helped more fully evaluate the mesentery from the medial side. Notable indeed were significant lymph nodes enlarged near the cecum itself and along the ileocolic vessel. Further dissection medially showed that the extent of mesenteric adenopathy was more extensive than previously thought. Various manipulations were made with the now bulky and free right and transverse colon became a question of whether or not adequate laparoscopic dissection would be adequate to provide inclusion of all mesenteric lymph nodes as one would hope. On that basis, conversion to a more conventional open colectomy was undertaken. The trocars were removed under direct visualization. Notably, a 10 mm port had been placed in the left lower quadrant at one point and that site was closed with a Elfego Don 0 Vicryl suture in the standard way. The infraumbilical incision was extended inferiorly through the thick abdominal wall pannus. The abdomen was entered. Palpation of the bulky cecum could be easily undertaken. The transverse colon was easily mobilized into the wound, but it was clear that extension of the incision would be necessary. By the end of operation, the incision had been extended inferiorly and above the umbilicus and although smaller than some open excisional approaches was certainly more than a complete laparoscopic one. Bookwalter retractor was affixed to the table. The small bowel was packed to the left side of the abdomen. The right mesocolon had been mobilized quite impressively from a laparoscopic approach. A plane was created between the right omentum and the right transverse mesocolon. Palpation of the lymph nodes in the mesentery showed them to extend along the ileocolic vessels up to the root of the mesentery. Sequential application of tonsil clamps to the uppermost portions of the right mesocolon were undertaken dividing them and excising what is believed to be all suspicious lymph nodes from the right colon and right mid transverse colon. The ileum was transected approximately 20 cm from the ileocecal valve incorporating suspicious nodes as well. Further dissection in transillumination of the mesocolon showed multiple middle colic vessels. The lymph node that was pigmented from the Endomark tattoo dye was incorporated in the resected specimen of course. The mesentery of the mesocolon was transected with electrocautery and the mid transverse colon was transected with PHAM stapling device. Electronically Signed By: MATT HARMON MD 04/17/22 0935 PATIENT NAME: SHUBHAM URENA OPERATIVE REPORT DATE OF : 57 REPORT #: [id number] PHYSICIAN: MATT HARMON MD PCP: RAI CAMEJO DO REPORT IS CONFIDENTIAL AND NOT TO BE RELEASED WITHOUT AUTHORIZATION [address] [address] Signed A jjys-ux-jcze ileotransverse colostomy was then undertaken in a two-layer technique of interrupted 3-0 silk suture in the serosal layer and 3-0 Vicryl in the mucosal layer. The stapled end of the colon had been oversewn with interrupted 3-0 silk suture. The staple line of the small bowel was left as is. Mesenteric defect was reapproximated with interrupted 3-0 silk suture. Irrigation was undertaken and isolating laparotomy packs removed. There was no untoward bleeding. Some clips had been applied to the uppermost portion of the mesenteric dissection for future reference. The small bowel was allowed to return to normal position and irrigation undertaken. Examination of the adnexal structures including the right and left ovarian remnants showed no evidence of metastatic disease. The uterus was of normal size for age and there was no sign of pelvic peritoneal implants. Attention was then turned towards closure. The midline fascia was reapproximated with running bidirectional #1 PDS suture. Subcutaneous tissue irrigated. Skin closed with running subcuticular 3-0 Vicryl. The remaining trocar sites were similarly closed with interrupted 3-0 Vicryl. Steri-Strips were applied as was an Acticoat dressing to each site. The patient was ultimately given bilateral tap block for postoperative analgesic benefit. Sponge, needle, and instruments counts reported as correct x3. The operation was prolonged, complicated, and difficult, ended at approximately 8:00 p.m., beginning at 4:00 p.m. MD LEAH Escobedo/MINH /[id number] cc: Rai Camejo DO [place] Electronically Signed By: MATT HARMON MD 04/17/22 0935 PATIENT NAME: SHUBHAM URENA OPERATIVE REPORT DATE OF : 57 REPORT #: [id number] PHYSICIAN: MATT HARMON MD PCP: RAI CAMEJO DO REPORT IS CONFIDENTIAL AND NOT TO BE RELEASED WITHOUT AUTHORIZATION [address] [address] Signed Copies: ~ Electronically Signed By: MATT HARMON MD 04/17/22 0935 PATIENT NAME: SHUBHAM URENA OPERATIVE REPORT DATE OF : 57 REPORT #: [id number] PHYSICIAN: MATT HARMON MD PCP: RAI CAMEJO DO REPORT IS CONFIDENTIAL AND NOT TO BE RELEASED WITHOUT AUTHORIZATION
--- NOTE | 2022-04-19 21:47 | PATH ---
[facility] [address] [facility] [place], [place] [address] Signed THIS IS AN ADDENDUM REPORT SPECIMEN(S): A RIGHT, TRANSVERSE COLON SPECIMEN SOURCE: A. RIGHT, TRANSVERSE COLON CLINICAL HISTORY: Malignant tumor of cecum FINAL PATHOLOGIC DIAGNOSIS: Colon, right, transverse, portion of mesentery and omentum, hemicolectomy and partial omentectomy: - Tumor site: Cecum. - Multiple primary sites: Not applicable. - Tumor size: 6.9 cm in greatest dimension. - Macroscopic tumor perforation: Absent. - Histologic tumor type: Adenocarcinoma. - Histologic grade: Moderate to poorly differentiated. - Tumor extension: The carcinoma invades through the muscularis propria and is present in the subserosa and pericolonic adipose tissue. - Surgical margins: All proximal/distal and circumferential resection margins are negative for tumor. - Distance of invasive carcinoma from closest margin (proximal resection margin): 5.7 cm. - Treatment effect: No prior treatment. - Lymphovascular invasion: Present (see comment). - Perineural invasion: Absent. - Tumor budding: Number of tumor buds in one hotspot is 6, intermediate. - Type of polyp in which invasive carcinoma arose: None identified. - Microsatellite instability testing: Pending and will be reported in an addendum report. - Additional cancer biomarker testing: Additional ancillary testing is available upon request. Please fax your request to with appropriate authorization, if applicable. - Additional findings: - Tumor extends to the subserosal surface (slide A10). - Omentum with blood, negative for carcinoma. - Fibrotically obliterated appendix, negative for tumor. - Lymph nodes: PATIENT NAME: SHUBHAM CLAIRE PATHOLOGY DATE OF : 57 REPORT #: [id number] PHYSICIAN: MONICABlackfoot PATHOLOGY PCP: JR DAN DO REPORT IS CONFIDENTIAL AND NOT TO BE RELEASED WITHOUT AUTHORIZATION [facility] [address], [place] [address] Signed - Total lymph nodes examined: 24. - Number of lymph nodes which contain tumor: 6. - Pathologic stage classification: pT3, pN2a. COMMENT: D2-40 immunohistochemical stain in search of lymphatic involvement is positive in spaces lined with lymphatic endothelium with tumor present. This confirms the presence of lymphatic involvement by carcinoma. Control slide stained appropriately positive. As part of [facility] Quality Improvement Program, this case was reviewed by another member of our pathology staff. TWK:NA:em:C1NR MICROSCOPIC EXAMINATION: Histologic sections of all submitted blocks are examined by light microscopy. These findings, together with the gross examination, support the pathologic diagnosis. GROSS DESCRIPTION: The specimen, labeled "Dahiana Claire," and designated on the requisition "right colon transverse colon, portion of mesentery and omentum," is received in formalin and consists of a portion of right colon, terminal ileum with an attached appendix and pericolonic adipose tissue. The right colon is 24.5 cm in length and has an average internal circumference of 6.5 cm. The terminal ileum is 10.2 cm in length and has an average internal circumference of 4.5 cm. The appendix measures 6.3 x 0.4 cm. It is pink-bell and smooth with adherent membranous tissue and an area of puckering at the cecum that is 2.4 x 1.6 cm. The surface is inked blue. The serosal surface is pink-bell and smooth. Upon opening the cecum contains a 6.9 x 4.5 x 2.1 cm dupree-pink centrally ulcerated mass with heaped up edges. This mass is located 17.6 cm from the distal resection margin, 5.7 cm from the proximal resection margin, and 9.6 cm from the vascular root resection margin. The mass extends to involve the ileocecal valve and is 2.1 cm from the appendiceal orifice. Sectioning through the mass reveals extension through the muscularis propria and into the adjacent adipose tissue. The mass is 0.1 cm from the serosal surface in the area of puckering. The remaining mucosa is yellow-bell and finely granular. The right colon has an average wall thickness of 0.9 cm. The mucosa of the terminal ileum is green and finely granular. The terminal ileum has PATIENT NAME: SHUBHAM CLAIRE PATHOLOGY DATE OF : 57 REPORT #: [id number] PHYSICIAN: AUNG PATHOLOGY PCP: JR DAN DO REPORT IS CONFIDENTIAL AND NOT TO BE RELEASED WITHOUT AUTHORIZATION [facility] [address], [place] [address] Signed an average wall thickness of 0.7 cm. Appendix displays a pinpoint lumen and an average wall thickness of 0.3 cm. The adjacent mesentery near the cecum displays a black dye discoloration. Upon dissection of the attached pericolonic adipose tissue multiple possible lymph nodes are grossly identified. Four of these lymph nodes are within close proximity of the vascular root resection margin. Nine of the lymph nodes are grossly positive for tumor. A 13.5 x 10.0 x 2 5 cm portion of omentum is attached to the pericolonic adipose tissue. It is yellow-bell, multilobulated, and focally congested. Upon sectioning no mass lesions are grossly identified. Separate within the container is an 11.5 x 4.6 x 1 7 cm portion of omentum. The external surface is yellow-bell, multilobulated, and focal congested. Serial sectioning reveals one area of hemorrhagic tissue that is 2.1 cm in greatest dimension. No discrete mass lesions are grossly identified. Grapple Yarder Operator sections are submitted in 19 cassettes. Cassette summary: (A1) distal resection margin, shave (A2) proximal resection margin, shave (A3) vascular root resection margin, shave (A4) four possible lymph nodes within close proximity of vascular root, submitted whole (A5) uninvolved large and small bowel (A6) appendix (A7) mass to uninvolved large bowel (A8) mass to adjacent pericolonic adipose tissue (A9) mass to ileocecal valve (A10) mass to serosa (A11) omentum with area of hemorrhage (A12) six possible lymph nodes, submitted whole (A13) two possible lymph nodes, each bisected, one arbitrarily inked (A14) six possible lymph nodes, submitted whole (A15) three possible lymph nodes, submitted whole (A16) one possible lymph node, trisected (A17-A19) textile machinery sales representative section of nine possible lymph nodes grossly positive for tumor. FB (under the direct supervision of a pathologist) The Gross Description was prepared using a voice recognition system. The report was reviewed for accuracy; however, sound-alike word errors, addition and/or deletions may occur. If there is any PATIENT NAME: SHUBHAM CLAIRE PATHOLOGY DATE OF : 57 REPORT #: [id number] PHYSICIAN: [facility] PCP: JR DAN DO REPORT IS CONFIDENTIAL AND NOT TO BE RELEASED WITHOUT AUTHORIZATION [facility] [address], [place] [address] Signed question about this report, please contact Client Services. PERFORMING LABORATORY: The technical component was performed by [facility], [address] [place] [id number] (CLIA# [id number]). The professional interpretation was performed by [facility], [facility], [address] [place] [address] (CLIA#: [id number]). COMMENT: Tumor cells show no loss of nuclear expression of MMR proteins. This correlates with a low probability of microsatellite instability. However, if there is a high clinical suspicion for Burnett syndrome (hereditary non-polyposis colorectal carcinoma syndrome) in this patient, additional testing should be considered. Please contact [facility] if such testing is indicated. TWK:narciso ADDENDUM MICROSCOPIC DESCRIPTION: A panel of four antibodies is selected which will detect 95% of microsatellite unstable carcinomas. Testing is performed at the request of Dr. Jero Carrera. Block: A8. Recut HE slide is prepared from the block. The presence of neoplastic glands and non-neoplastic internal control glands or stroma is confirmed. Internal control cells for MLH1, MSH2, PMS2 and MSH6 are indeterminate. Neoplastic gland cells show the following: - MLH1: Positive. - MSH2: Positive. - MSH6: Positive. - PMS2: Positive. Technical testing is performed at [place]. ADDITIONAL NOTES: Immunohistochemical and/or in situ hybridization studies were performed on this case with the appropriate positive controls that react as expected. This test was developed and its performance characteristics determined by [facility]. It has not been cleared or approved by the U.S. Food and Drug Administration. The FDA has determined that such clearance or approval is not necessary. This test is used for clinical purposes. It should not be regarded as investigational or for research. [facility] is certified under the Clinical Laboratory Improvement PATIENT NAME: SHUBHAM CLAIRE PATHOLOGY DATE OF : 57 REPORT #: [id number] PHYSICIAN: AUNG GUEVARA PCP: JR DAN DO REPORT IS CONFIDENTIAL AND NOT TO BE RELEASED WITHOUT AUTHORIZATION [facility] [address], [place] [address] Signed Amendments of 1988 (CLIA) as qualified to perform high complexity clinical laboratory testing. PERFORMING LABORATORY: The technical component was performed by [facility], [address] [place] [address] (CLIA#: [id number]). The professional interpretation was performed by [facility], [facility], [address] [place] [address] (CLIA#: [id number]). REASON FOR ADDENDUM: To add results of additional testing. ADDENDUM PATHOLOGIC DIAGNOSIS: Transverse colon, adenocarcinoma, microsatellite instability testing by IHC: - MLH1: Intact nuclear expression. - MSH2: Intact nuclear expression. - MSH6: Intact nuclear expression. - PMS2: Intact nuclear expression. INTERPRETATION: Normal pattern. Diagnostician: Jero Carrera MD Pathologist Electronically Signed 04/19/2022 Copies: ~ PATIENT NAME: SHUBHAM CLAIRE PATHOLOGY DATE OF : 57 REPORT #: [id number] PHYSICIAN: AUNG GUEVARA PCP: JR DAN DO REPORT IS CONFIDENTIAL AND NOT TO BE RELEASED WITHOUT AUTHORIZATION
== END 2022-04-10 13:38 | disposition home or self-care (01) | DRG 331 ==
LOC: MS 04-06 09:30 → DSVR 04-06 09:45 → MS 04-06 11:30
PROVIDERS: ADMIT Surgery; ATTEND Surgery
PROC: 0DTF0ZZ Resection of Right Large Intestine, Open Approach (ICD-10-PCS; principal; 2022-04-06 13:30)
PROC: 0DJD4ZZ Inspection of Lower Intestinal Tract, Percutaneous Endoscopic Approach (ICD-10-PCS; 2022-04-06 13:30)
DX: C18.0 Malignant neoplasm of cecum (principal); D63.0 Anemia in neoplastic disease; G47.00 Insomnia, unspecified; Z91.040 Latex allergy status; Z79.899 Other long term (current) drug therapy; J45.909 Unspecified asthma, uncomplicated; I10 Essential (primary) hypertension
CPT/HCPCS: 00840; 36415; 80048; 80053; 85025; 88307; 88342; 94760; 94762; A9270; J0131; J0330; J0360; J0690; J1100; J1160; J1644; J1720; J1885; J2250; J2270; J2405; J2704; J2765; J2795; J3010; J7121

== ENCOUNTER 2023-05-21 12:52 | Day surgery (SDC) | payer MEDICARE, OTHER ==
[~2023-05-21] VITALS: Ht 177.8 cm; Wt 75.0 kg
[~2023-05-21 12:52] MED LIST changes: +ACETAMINOPHEN500 MG PO; +ATIVAN1 MG PO; +DEXAMETHASONE4 MG PO; +ESTRACE42.5 GM VAGINAL; +IBUPROFEN600 MG PO; +ONDANSETRON ODT8 MG PO; +OXYCODON-ACETA1 EAC2 PO; +PROTONIX40 MG PO; +VITAMIN C500 M4 PO; +VITAMIN D325 MCG PO
[2023-05-21] MEDS ORDERED: AMLODIPINE BES2.5 MG PO (13:34)
[2023-05-21] MEDS ORDERED: ESCITALOPRAM OX10 MG PO (13:35)
[2023-05-21 13:38] VITALS: BP 149/95
--- NOTE | 2023-05-21 17:08 | NUR ---
05/21/23 1708 Evelina,Taryn 1658 PT ARRRIVED TO PACU ON 2L VIA MASK, PT AWAKES EASILY AND DENIES CONCERNS. PT ENCOURAGED TO PASS GAS/AIR NEEDED.
[2023-05-21 17:16] VITALS: BP 149/105
--- NOTE | 2023-05-22 09:08 | OR ---
[facility] [address] [place], [place] [address] Signed DATE OF OPERATION: 05/21/2023 SURGEON: Matt Harmon MD PREOPERATIVE DIAGNOSIS: History of right colectomy March 2022 for stage III colon cancer status post chemotherapy and resection. POSTOPERATIVE DIAGNOSIS: Small polyp at 40 cm (excised). PROCEDURE: Total colonoscopy to the ileocolic anastomosis. ANESTHESIA: Intravenous sedation; fentanyl 100 mcg, Versed 6 mg. INDICATION: This 67-year-old white woman is a patient of Eros Rosa PA-C. She also has seen Dr. Murcia. She underwent right colectomy by me in March of 2022 for what was found to be a stage III adenocarcinoma of the cecum. She has undergone chemotherapy and has completed therapy and had her Port-A-Cath removed recently by me. She is now to undergo surveillance colonoscopy, understands the risk of bleeding, infection, and perforation. FINDINGS: The prep was good. Complete colonoscopy was undertaken to the ileocolic anastomosis. She had a very small polyp at 40 cm which might have been hyperplastic. The remaining colon was normal. DESCRIPTION OF PROCEDURE: The patient was brought to the endoscopy suite and placed in lateral decubitus position, given intravenous sedation to the point of slurred speech and nystagmus. Digital rectal examination was normal. Full cardiopulmonary monitoring was maintained. The Olympus video colonoscope was passed in the rectum and manipulated throughout the colon ultimately intubating the transverse colon with identification of the ileocolic anastomosis. The scope was then withdrawn. Examination throughout showed no sign of abnormality until approximately 40 cm from the anal verge, where a very small polyp was noted. It had features of hyperplasia as well as adenomatous change. It was excised with cold morcellation technique and was quite small. Further withdrawal showed no Electronically Signed By: MATT HARMON MD 05/22/23 0908 PATIENT NAME: SHUBHAM URENA OPERATIVE REPORT DATE OF : 57 REPORT #: [id number] PHYSICIAN: MATT HARMON MD PCP: EROS ROSA PA-C REPORT IS CONFIDENTIAL AND NOT TO BE RELEASED WITHOUT AUTHORIZATION [facility] [address] [place], [place] [address] Signed other abnormality. The rectum was normal. Scope was removed and the patient was taken to the recovery room in good condition. CONCLUDING DIAGNOSIS: Polyp x1. PLAN: Recommend repeat colonoscopy in one year as planned. She will continue follow up with Dr. Murcia, her oncologist as well as Eros Rosa PA-C. MD LEAH Escobedo/MINH /[id number] cc: Eros Rosa PA-C. Evelyn Murcia MD Copies: EVELYN MURCIA MD ~ Electronically Signed By: MATT HARMON MD 05/22/23 0908 PATIENT NAME: SHUBHAM URENA OPERATIVE REPORT DATE OF : 57 REPORT #: [id number] PHYSICIAN: MATT HARMON MD PCP: EROS ROSA PA-C REPORT IS CONFIDENTIAL AND NOT TO BE RELEASED WITHOUT AUTHORIZATION
--- NOTE | 2023-05-23 14:59 | PATH ---
[facility] [address] [place], [place] [address] Signed SPECIMEN(S): A SIGMOID POLYP SPECIMEN SOURCE: A. SIGMOID POLYP CLINICAL HISTORY: Colon CA, S/P Colectomy. FINAL PATHOLOGIC DIAGNOSIS: Sigmoid polyp: - Hyperplastic polyp (one fragment). JVR:[place] MICROSCOPIC EXAMINATION: Histologic sections of all submitted blocks are examined by light microscopy. These findings, together with the gross examination, support the pathologic diagnosis. GROSS DESCRIPTION: The specimen, labeled and designated "Dahiana Claire," and designated on the requisition "colon, sigmoid polypectomy," is received in formalin and consists of one bell soft tissue fragment measuring 0.4 x 0.3 x 0.3 cm, the specimen is submitted entirely in (A1). MMA (under the direct supervision of a pathologist) The Gross Description was prepared using a voice recognition system. The report was reviewed for accuracy; however, sound-alike word errors, addition and/or deletions may occur. If there is any question about this report, please contact Client Services. PERFORMING LABORATORY: Technical component was performed by [facility], [address] [place] [id number] (CLIA# [id number]). Professional interpretation was performed by [facility], [address] [place] [id number] (CLIA#: [id number]). Diagnostician: Jorden Gamble MD Pathologist Electronically Signed 05/23/2023 Copies: PATIENT NAME: SHUBHAM CLAIRE PATHOLOGY DATE OF : 57 REPORT #: [id number] PHYSICIAN: [facility] PCP: EROS ROSA PA-C REPORT IS CONFIDENTIAL AND NOT TO BE RELEASED WITHOUT AUTHORIZATION [address] [address] Signed ~ PATIENT NAME: SHUBHAM CLAIRE PATHOLOGY DATE OF : 57 REPORT #: [id number] PHYSICIAN: [facility] PATHOLOG[facility] PCP: EROS ROSA PA-C REPORT IS CONFIDENTIAL AND NOT TO BE RELEASED WITHOUT AUTHORIZATION
== END 2023-05-21 17:35 | disposition home or self-care (01) ==
LOC: OPS 12:52 → DS 12:58 → OPS 14:00
PROVIDERS: ATTEND Surgery
PROC: 0DBE8ZZ Excision of Large Intestine, Via Natural or Artificial Opening Endoscopic (ICD-10-PCS; principal; 2023-05-21 14:00)
DX: Z12.11 Encounter for screening for malignant neoplasm of colon (principal); Z85.038 Personal history of other malignant neoplasm of large intestine; Z80.0 Family history of malignant neoplasm of digestive organs; K63.5 Polyp of colon
CPT/HCPCS: 99153; G0500; J2250; J3010; J7121